=== PATIENT | male | born 1985 | race African-American/Black ===

== ENCOUNTER 2020-12-29 16:05 | Emergency (ER) | payer OTHER, BC ==
--- NOTE | 2020-12-29 16:08 | EDM.PDOC ---
ED HPI GENERAL MEDICAL PROBLEM - General Stated Complaint: RT MIDDLE FINGER INJURY Time Seen by Provider: 12/29/20 16:07 Source of Information: Reports: Patient History Limitations: Reports: No Limitations - History of Present Illness INITIAL COMMENTS - FREE TEXT/NARRATIVE: HISTORY AND PHYSICAL: History of present illness: The patient is a 35-year-old male who presents to the emergency room after obta ining a crush injury to his right third finger. 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 He had 2 layers of gloves on. One a hard protective glove. He did not do anything to clean the wound prior to come to the emergency room. Do not take any [id number] medication to treat the pain. He rates his pain a 3 out of 10 at present. He does not know when he had his last tetanus vaccination. Patient denies any fever, chills, headache, change in vision, syncope or near syncope. Denies any chest pain, back pain, shortness of breath or cough. Denies any abdominal pain, nausea, vomiting, diarrhea, constipation or dysuria. Has not noted any blood in urine or stool. Patient has been eating and drinking appropriately. Review of systems: As per history of present illness and below otherwise all systems reviewed and negative. Past medical history: As per history of present illness and as reviewed below otherwise noncontributory. Surgical history: As per history of present illness and as reviewed below otherwise noncontributory. Social history: See social history for further information Family history: As per history of present illness and as reviewed below otherwise noncontributory. Physical exam: General: Well developed and well nourished. Alert and orientated x 3. Nontoxic in appearance and in no acute distress. Vital signs are stable and have been reviewed by me. Nursing notes were reviewed. HEENT: Atraumatic, normocephalic, pupils equal and reactive bilaterally, negative for conjunctival pallor or scleral icterus, mucous membranes moist, TMs normal bilaterally, throat clear, neck supple, nontender, trachea midline. No drooling or trismus noted. No meningeal signs. No hot potato voice noted. Lungs: Clear to auscultation bilaterally. No wheezes, rales, or rhonchi. Chest nontender. Normal work of breathing, no accessory muscles used. Heart: S1S2, regular rate and rhythm without overt murmur, gallops, or rubs. No JVD. No peripheral edema Abdomen: Soft, nondistended, nontender. Normoactive bowel sounds. Negative for masses or costovertebral tenderness. Skin: 2.6 cm laceration on dorsal side of 3rd right finger. Pain in the PIP with flexion. No lesions or rashes noted. Hematologic: No petechiae or purpra. Mucosa appropriate color and normal nail bed color and refill. Extremities: Atraumatic, moves all extremities per self without difficulty or deficits, negative for cords or calf pain. Neurovascular unremarkable. Neuro: Awake, alert, oriented. Cranial nerves II through XII unremarkable. Cerebellum unremarkable. Motor and sensory unremarkable throughout. Exam nonfocal. Psychiatric: Mood and affect are appropriate. Normal thought process. Answering questions appropriately. Notes: *This patient was seen and evaluated during the 2019 SARS-CoV-2 novel coronavirus pandemic period. Community viral transmission is ongoing at time of this encounter and the emergency department is operating under pandemic response procedures. After discussion and examination the patient is agreeable to a hand x-ray and sutures. The hand x-ray impression:Middle finger soft tissue swelling. No radiopaque foreign body. No bone abnormality. The was approximated with five sutures using 3-0 Ethilon and 2 sutures using 4-0 Ethilon. Patient tolerated well. I will refer patient to hand surgeon due to tenderness in the PIP joint with flexion. Patient will be placed in a splint until follow-up. I have talked with the patient about today's findings, in addition to providing specific details for plan of care. Reassessment at the time of disposition demonstrates that the patient is in no acute distress. The patient is stable for discharge, counseling was provided and we discussed in great detail signs and symptoms that would prompt them to return to the Emergency Department. Medication, follow up and supportive care measures were reviewed and discussed. Voices understanding and is agreeable to plan of care. Denies any further questions or concerns at this time. Diagnostics: x-ray Therapeutics:Lidocaine 1% Impression: laceration, crush injury Plan: 1. You were evaluated today on an emergent basis. Your right 3rd finger laceration. Your laceration was closed using sutures #7. Wear your splint to you have a follow-up with the hand surgeon. Keep the finger clean and dry and a bandage on when working. You can use ice for pain or discomfort. You can take showers but do not submerge your hand in water. Monitor for signs of infection such as increased redness, drainage, increased pain. You can return to the emergency room in 7 days to have your sutures removed. 2. You can alternate Tylenol and ibuprofen as needed for pain and fever management. 3. We encourage you to follow up with your primary care provider and/or recommended specialist in the next few days for re-evaluation and further care/management. 4. If your symptoms should worsen, new symptoms develop or any of the signs and symptoms we discussed should arise please return to the emergency room or call 911 (if needed). Definitive disposition and diagnosis as appropriate pending reevaluation and review of above. Right third digit Pain Score (Numeric/FACES): 4 - Related Data Allergies Allergy/AdvReac Type Severity Reaction Status Date / Time No Known Allergies Allergy Verified 12/29/20 16:29 Review of Systems - Review of Systems Review Of Systems: Comprehensive ROS is negative, except as noted in HPI. ED EXAM, GENERAL - Physical Exam Exam: See Below (See dictation) ED TRAUMA EXTREMITY PROCEDURES - Laceration/Wound Repair Right Ventral Digit - 3rd (Middle) Lac/Wound Length In cm: 2.6 Appearance: Subcutaneous Distal NVT: Other (pain in the PIP with flexion) Anesthetic Type: Local Local Anesthesia - Lidocaine (Xylocaine): 1% Plain Local Anesthetic Volume: 5cc Skin Prep: Chlorhexidine (Hibiciens) Exploration/Debridement/Repair: Wound Explored, No Foreign Material Found Closed With: Sutures Suture Size: 3-0 (two sutures of 4-0 prolene) # of Sutures: 5 Suture Type: Prolene Course - Vital Signs Last Recorded V/S: Last Vital Signs Temp 97.6 F 12/29/20 16:29 Pulse 77 12/29/20 16:29 Resp 17 12/29/20 16:29 BP 149/71 H 12/29/20 16:29 Pulse Ox 97 12/29/20 16:29 - Orders/Labs/Meds Meds: Medications Discontinued Medications Generic Name Dose Route Start Last Admin Trade Name Freq PRN Reason Stop Dose Admin Diphtheria/Tetanus/Acell Pertussis 0.5 ml 12/29/20 16:38 12/29/20 16:50 Diphtheria,Pertussis(Acell),Tetanus Vaccine 0.5 Ml Syringe IM 12/29/20 16:39 0.5 ml .ONCE ONE Administration Lidocaine HCl 5 ml 12/29/20 16:40 12/29/20 16:50 Lidocaine 1% 5 Ml Sdv INJECT 12/29/20 16:41 5 ml ONETIME ONE Administration Departure - Departure Time of Disposition: 18:24 Disposition: Home, Self-Care 01 Condition: Good Clinical Impression: Laceration, Crush accident - Discharge Information *PRESCRIPTION DRUG MONITORING PROGRAM REVIEWED*: Not Applicable *COPY OF PRESCRIPTION DRUG MONITORING REPORT IN PATIENT KIAH: Not Applicable Instructions: Laceration Care, Adult Referrals: PCP,None [Primary Care Provider] - Forms: ED Department Discharge Additional Instructions: The following information is given to patients seen in the emergency department who are being discharged to home. This information is to outline your options for follow-up care. We provide all patients seen in our emergency department with a follow-up referral. The need for follow-up, as well as the timing and circumstances, are variable depending upon the specifics of your emergency department visit. If you don't have a primary care physician on staff, we will provide you with a referral. We always advise you to contact your personal physician following an emergency department visit to inform them of the circumstance of the visit and for follow-up with them and/or the need for any referrals to a consulting specialist. The emergency department will also refer you to a specialist when appropriate. This referral assures that you have the opportunity for follow-up care with a specialist. All of these measure are taken in an effort to provide you with optimal care, which includes your follow-up. Under all circumstances we always encourage you to contact your private physician who remains a resource for coordinating your care. When calling for follow-up care, please make the office aware that this follow-up is from your recent emergency room visit. If for any reason you are refused follow-up, please contact the [facility] Emergency Department at and asked to speak to the emergency department charge nurse. [facility] [address] [place], [place] [address] Plan: 1. You were evaluated today on an emergent basis. Your right 3rd finger laceration. Your laceration was closed using sutures #7. Wear your splint to you have a follow-up with the hand surgeon. Keep the finger clean and dry and a bandage on when working. You can use ice for pain or discomfort. You can take showers but do not submerge your hand in water. Monitor for signs of infection such as increased redness, drainage, increased pain. You can return to the emergency room in 7 days to have your sutures removed. I have provided the numbers above for you to call for follow-up appointment. 2. You can alternate Tylenol and ibuprofen as needed for pain and fever management. 3. We encourage you to follow up with your primary care provider and/or recommended specialist in the next few days for re-evaluation and further care/management. 4. If your symptoms should worsen, new symptoms develop or any of the signs and symptoms we discussed should arise please return to the emergency room or call 911 (if needed). Sepsis Event Note (ED) - Focused Exam Vital Signs: Vital Signs Temp Pulse Resp BP Pulse Ox 12/29/20 16:29 97.6 F 77 17 149/71 H 97
[2020-12-29] MEDS ORDERED: Diphtheria,Pertussis(Acell),Tetanus Vaccine 0.5 ML Syringe IM ONE (16:38)
--- NOTE | 2020-12-29 17:59 | CR ---
HISTORY: Middle finger crush injury. Laceration. TECHNIQUE: Right hand 3 views. COMPARISON: None. FINDINGS: Middle finger soft tissue swelling. No radiopaque foreign body. No fracture or dislocation. Joint spaces are maintained. IMPRESSION: Middle finger soft tissue swelling. No radiopaque foreign body. No bone abnormality. Dictated by Izaiah Pressley MD @ 12/29/2020 5:58:[address] Izaiah Pressley @ Dec 29 2020 5:58PM
== END 2020-12-29 18:38 | disposition home or self-care (01) ==
LOC: MW.ED 16:05
DX: S67.192A Crushing injury of right middle finger, initial encounter (principal); Z23 Encounter for immunization; W23.0XXA Caught, crushed, jammed, or pinched between moving objects, initial encounter
CPT/HCPCS: 12002; 73130-26-RT; 73130-RT; 90471; 90715; 99283; 99283-25